=== PATIENT | male | born 1945 | race Caucasian/White ===

== ENCOUNTER 2022-06-11 09:10 | Outpatient (CLI) | payer MEDICARE, SELFPAY ==
[2022-06-11 19:38] LABS: Alanine Aminotransferase 31 U/L (6-50); Albumin Level 4.3 g/dL (3.5-5.1); Alkaline Phosphatase 66 U/L (38-126); Anion Gap 10 mmol/L (8-16); Aspartate Amino Transferase 34 U/L (17-59); Bilirubin,Total 0.5 mg/dL (0.2-1.3); Blood Urea Nitrogen 14 mg/dL (9-20); Calcium 9.8 mg/dL (8.4-10.2); Carbon Dioxide 26 mmol/L (22-30); Chloride 105 mmol/L (98-107); Cholesterol 134 mg/dL (0-200); Estimated Glomerular Filt Rate > 60; Glucose 98 mg/dL (65-110); HDL Direct 33 mg/dL; Potassium 4.1 mmol/L (3.4-5.0); Sodium 141 mmol/L (137-145); Triglycerides 159 mg/dL (<150)
[2022-06-11 19:41] LABS: Basophils Absolute Auto 0.1 K/mm3 (0.0-0.1); Basophils Percent Auto 0.6 % (0.2-1.2); Eosinophils Absolute Auto 0.2 K/mm3 (0-0.3); Eosinophils Percent Auto 2.5 % (0-4.4); Hematocrit 48.6 % (42.0-52.0); Hemoglobin 15.4 g/dL (14.0-18.0); Immature Granulocyte Absolute 0.02 K/mm3 (0.00-0.031); Immature Granulocyte Percent A 0.3 % (0-0.5); Lymphocytes Absolute Auto 1.88 K/mm3 (0.9-3.2); Lymphocytes Percent Auto 23.7 % (18.3-44.2); Mean Corpuscular HGB Conc 31.7 g/dl (32-36); Mean Corpuscular Hemoglobin 28.9 pg (26-34); Mean Corpuscular Volume 91.2 fl (80-100); Monocytes Absolute Auto 0.7 K/mm3 (0.1-0.6); Monocytes Percent Auto 9.1 % (2.6-8.5); Neutrophils Absolute Auto 5.1 K/mm3 (1.3-6.7); Neutrophils Percent Auto 63.8 % (45.5-73.1); Platelet Count Result 254 k/mm3 (150-375); Red Blood Count 5.33 M/mm3 (4.6-6.20); Red Cell Distribution Width 13.5 % (11.5-14.5); White Blood Count 7.9 K/mm3 (4.5-10.0)
[2022-06-11 19:48] LABS: LDL Cholesterol Direct 70 mg/dL
[2022-06-11 20:23] LABS: Hemoglobin A1C 6.3 % (<5.7)
[2022-06-11 20:27] LABS: Vitamin D 25 Hydroxy 62.3 ng/mL
[2022-06-11 20:40] LABS: Thyroid Stimulating Hormone Reflex 0.915 uIU/mL (0.465-4.68)
== END 2022-06-11 09:11 | disposition home or self-care (01) ==
LOC: ANHGOSHLAB 09:15
PROVIDERS: PCP Family Medicine; Visit Provider Nurse Practitioner
DX: I10 Essential (primary) hypertension (principal); R53.83 Other fatigue; E55.9 Vitamin D deficiency, unspecified; E78.5 Hyperlipidemia, unspecified; E11.9 Type 2 diabetes mellitus without complications
CPT/HCPCS: 36415; 80053; 80061; 82306; 83036; 84443; 85025

== ENCOUNTER 2022-12-18 08:43 | Outpatient (CLI) | payer MEDICARE, SELFPAY ==
[2022-12-18 10:09] LABS: Kit Draw Collected
== END 2022-12-18 08:44 | disposition home or self-care (01) ==
LOC: ANHGOSHLAB 08:45
PROVIDERS: PCP Family Medicine; Visit Provider Nurse Practitioner
DX: I10 Essential (primary) hypertension (principal); E11.9 Type 2 diabetes mellitus without complications; E78.5 Hyperlipidemia, unspecified; Z12.5 Encounter for screening for malignant neoplasm of prostate
CPT/HCPCS: 36415

== ENCOUNTER 2023-06-19 09:31 | Outpatient (CLI) | payer MEDICARE, SELFPAY ==
[2023-06-19 19:19] LABS: Alanine Aminotransferase 43 U/L (6-50); Albumin Level 4.5 g/dL (3.5-5.1); Alkaline Phosphatase 67 U/L (38-126); Anion Gap 9 mmol/L (8-16); Aspartate Amino Transferase 34 U/L (17-59); Bilirubin,Total 0.3 mg/dL (0.2-1.3); Blood Urea Nitrogen 16 mg/dL (9-20); Calcium 9.5 mg/dL (8.4-10.2); Carbon Dioxide 27 mmol/L (22-30); Chloride 106 mmol/L (98-107); Estimated Glomerular Filt Rate > 60; Glucose 83 mg/dL (65-110); Potassium 4.8 mmol/L (3.4-5.0); Sodium 142 mmol/L (137-145)
[2023-06-19 20:12] LABS: Hemoglobin A1C 6.2 % (<5.7)
== END 2023-06-19 09:32 | disposition home or self-care (01) ==
PROVIDERS: PCP Family Medicine; Visit Provider Family Medicine
DX: E11.9 Type 2 diabetes mellitus without complications (principal); E53.8 Deficiency of other specified B group vitamins; E78.49 Other hyperlipidemia; I10 Essential (primary) hypertension
CPT/HCPCS: 36415; 80053; 82607; 83036; 84443

== ENCOUNTER 2023-12-23 12:32 | Outpatient (CLI) | payer MEDICARE, SELFPAY ==
[2023-12-23 19:16] LABS: Alanine Aminotransferase 26 U/L (6-50); Albumin Level 4.3 g/dL (3.5-5.1); Alkaline Phosphatase 67 U/L (38-126); Anion Gap 8 mmol/L (8-16); Aspartate Amino Transferase 30 U/L (17-59); Bilirubin,Total 0.4 mg/dL (0.2-1.3); Blood Urea Nitrogen 22 mg/dL (9-20); Calcium 10.2 mg/dL (8.4-10.2); Carbon Dioxide 26 mmol/L (22-30); Chloride 110 mmol/L (98-107); Cholesterol 179 mg/dL (0-200); Estimated Glomerular Filt Rate > 60; Glucose 109 mg/dL (65-110); HDL Direct 32 mg/dL; Potassium 4.9 mmol/L (3.4-5.0); Sodium 144 mmol/L (137-145); Triglycerides 261 mg/dL (<150)
[2023-12-23 19:28] LABS: LDL Cholesterol Direct 113 mg/dL
[2023-12-23 19:35] LABS: Basophils Absolute Auto 0.1 K/mm3 (0.0-0.1); Basophils Percent Auto 1.1 % (0.2-1.2); Eosinophils Absolute Auto 0.6 K/mm3 (0-0.3); Eosinophils Percent Auto 6.1 % (0-4.4); Hematocrit 47.6 % (42.0-52.0); Hemoglobin 14.6 g/dL (14.0-18.0); Immature Granulocyte Absolute 0.02 K/mm3 (0.00-0.031); Immature Granulocyte Percent A 0.2 % (0-0.5); Lymphocytes Absolute Auto 2.61 K/mm3 (0.9-3.2); Lymphocytes Percent Auto 27.5 % (18.3-44.2); Mean Corpuscular HGB Conc 30.7 g/dl (32-36); Mean Corpuscular Hemoglobin 28.5 pg (26-34); Mean Platelet Volume 10.6 fl (7.4-10.4); Monocytes Absolute Auto 0.8 K/mm3 (0.1-0.6); Monocytes Percent Auto 8.3 % (2.6-8.5); Neutrophils Absolute Auto 5.4 K/mm3 (1.3-6.7); Neutrophils Percent Auto 56.8 % (45.5-73.1); Platelet Count Result 289 k/mm3 (150-375); Red Blood Count 5.12 M/mm3 (4.6-6.20); Red Cell Distribution Width 13.2 % (11.5-14.5); White Blood Count 9.5 K/mm3 (4.5-10.0)
[2023-12-23 19:40] LABS: Vitamin D 25 Hydroxy 72.1 ng/mL
[2023-12-23 19:54] LABS: Thyroid Stimulating Hormone Reflex 0.845 uIU/mL (0.465-4.68)
[2023-12-23 20:36] LABS: Creatinine Urine 140.3 mg/dL
[2023-12-23 20:45] LABS: MALB Creatinine Ratio 20.6 mg/g (0-30); Microalbumin Urine Random 28.9 mg/L (0-16.7)
[2023-12-23 21:27] LABS: Hemoglobin A1C 6.3 % (<5.7)
== END 2023-12-23 12:33 | disposition home or self-care (01) ==
LOC: ANHGOSHLAB 12:33
PROVIDERS: PCP Family Medicine; Visit Provider Family Medicine
DX: E53.8 Deficiency of other specified B group vitamins (principal); E11.9 Type 2 diabetes mellitus without complications; E78.5 Hyperlipidemia, unspecified; I10 Essential (primary) hypertension; E55.9 Vitamin D deficiency, unspecified; Z12.5 Encounter for screening for malignant neoplasm of prostate; H40.9 Unspecified glaucoma; Z00.00 Encounter for general adult medical examination without abnormal findings
CPT/HCPCS: 36415; 80053; 80061; 82043; 82306; 82607; 83036; 84153; 84443; 85025; G0103

== ENCOUNTER 2024-06-29 12:28 | Outpatient (CLI) | payer MEDICARE, SELFPAY ==
[2024-06-29 16:24] LABS: Alanine Aminotransferase 31 U/L (6-50); Albumin Level 4.4 g/dL (3.5-5.1); Alkaline Phosphatase 78 U/L (38-126); Anion Gap 9 mmol/L (4-12); Aspartate Amino Transferase 57 U/L (17-59); Bilirubin,Total 0.5 mg/dL (0.2-1.3); Blood Urea Nitrogen 15 mg/dL (9-20); Calcium 9.7 mg/dL (8.4-10.2); Carbon Dioxide 28 mmol/L (22-30); Chloride 103 mmol/L (98-107); Cholesterol 177 mg/dL (0-200); Estimated Glomerular Filt Rate > 60; Glucose 114 mg/dL (65-110); HDL Direct 40 mg/dL; Potassium 4.5 mmol/L (3.4-5.0); Sodium 140 mmol/L (137-145); Triglycerides 142 mg/dL (<150)
[2024-06-29 16:36] LABS: LDL Cholesterol Direct 100 mg/dL
[2024-06-29 16:56] LABS: Hemoglobin A1C 6.4 % (<5.7)
[2024-06-29 17:31] LABS: Hepatitis C Virus Antibody Negative (Negative)
== END 2024-06-29 12:29 | disposition home or self-care (01) ==
LOC: ANHGOSHLAB 12:29
PROVIDERS: PCP Family Medicine; Visit Provider Family Medicine
DX: E78.5 Hyperlipidemia, unspecified (principal); E11.9 Type 2 diabetes mellitus without complications; I10 Essential (primary) hypertension; Z11.59 Encounter for screening for other viral diseases
CPT/HCPCS: 36415; 80053; 80061; 83036; 86803

== ENCOUNTER 2024-12-07 18:10 | Emergency (ER) | payer MEDICARE, SELFPAY ==
[2024-12-07 18:24] VITALS: BP 191/75; PULSE 102; RESP 16; TEMP 38.8; O2SAT 96
--- OUTSIDE RECORDS SUMMARY | 2024-12-07 18:51 | XMS_ITS | Referral Summary ---
Author Organization [facility] [place] [address] Address [address] [place] [address] Care Team Providers Care Coil Connector Repairer Name Role Phone Iftikhar Barry MD Primary Care Provider Allergies Active Allergy Reactions Criticality Noted Date Comments Codeine Stomach upset Low 08/10/2022 Penicillins Rash Medium 08/10/2022 Medications metFORMIN (GLUCOPHAGE) 500 mg tablet Take 1 tablet (500 mg total) by mouth 2 (two) times a day [address] (PROTONIX) 40 mg EC tablet Take 1 tablet (40 mg total) by mouth 2 (two) times a day 2 Active glipiZIDE (GLUCOTROL) 5 mg tablet Take 1 tablet (5 mg total) by mouth daily 2 Active hydrOXYzine (ATARAX) 25 mg tablet 2 Active OneTouch Ultra Test strip USE 1 STRIP TO CHECK BLOOD SUGAR TWICE DAILY 2 Active dorzolamide-nik oloL (COSOPT) 22.3-6.8 mg/mL ophthalmic solution INSTILL 1 DROP INTO BOTH EYES THREE TIMES DAILY 2 Active latanoprost (XALATAN) 0.005 % ophthalmic solution 1 drop nightly Activ e ibuprofen (ADVIL,MOTRIN) 200 mg tab/cap Take by mouth every 6 (six) hours as needed for pain Active amLODIPine (NORVASC) 10 mg tablet Take 1 tablet (10 mg total) by mouth daily 90 tablet 3 2 Active fosinopriL (MONOPRIL) 40 mg tablet Take 1 tablet (40 mg total) by mouth daily 90 tablet 3 2 Active brimonidine (ALPHAGAN) 0.2 % ophthalmic solution INSTILL 1 DROP INTO THE RIGHT EYE TWICE DAILY 3 Active Rhopressa 0.02 % drops Administer 0.05 mL (1 drop total) into affected eye(s) 2 (two) times a day 3 Active atorvastatin (LIPITOR) 40 mg tablet Take 1 tablet (40 mg total) by mouth nightly at bedtime 4 Active Active Problems Problem Noted Date Diagnosed Date Hyperlipidemia 04/03/2024 Primary hypertension 08/10/2022 Obesity (BMI 35.0-39.9 without comorbidity) 07/22 Diabetes mellitus type II, non insulin dependent ([facility]) 08/10/2022 Social History Tobacco Use Types Packs/Day Years Used Date Smoking Tobacco: Former Cigarettes Smokeless Tobacco: Never Tobacco Cessation:Counseling Given: Not Answered Personal Safety Answer Date Recorded Getting School Help Needed Not on file 10/04 Sex and Gender Information Value Date Recorded Sex Assigned at Not on file 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 Gender Identity Not on file Sexual Orientation Not on file Last Filed Vital Signs Vital Sign Reading Time Taken Comments Blood Pressure 160/64 04/03/2024 9:04 AM CDT Pulse 71 04/03/2024 9:04 AM CDT Temperature - - Respiratory Rate - - Oxygen Saturation 96% 04/03/2024 9:04 AM CDT Inhaled Oxygen Concentration - - Weight 101.2 kg (223 lb 3.2 oz) 04/03/2024 9:04 AM CDT Height 167.6 cm (5' 6 ) 04/03/2024 9:04 AM CDT Body Mass Index 36.03 04/03/2024 9:04 AM CDT Plan of Treatment Not on file Procedures Procedure Name Priority Date/Time Associated Diagnosis Comments POCT LIPID PANEL Routine 08/10/2022 9:14 AM CDT Lipid screening from Last 3 Months or Most Recently Relevant to Health Maintenance Results * POCT lipid panel (08/10/2022 9:14 AM CDT) Cholesterol, POC 136 mg/dL HDL, POC 33 mg/dL Triglycerides, POC 167 mg/dL LDL Cholesterol POC 69 mg/dL Chol/HDL Ratio, POC 4.1 Non-HDL Cholesterol, POC 103 mg/dL Cholesterol Total, POC 136 mg/dL Capillary blood 08/10/2022 9 :14 AM CDT [facility] Edwar Mckenzie MD POINT OF CARE TEST CAITLIN HANDY Final Result from Last 3 Months or Most Recently Relevant to Health Maintenance Insurance [facility] Address: [address] [address] [place] [address] [facility] MEDICARE [facility] Address: [address] [place] [address] [facility] MEDICARE Care Teams Coil Connector Repairer Relationship Specialty Start Date End Date Iftikhar Barry MD PCP - General Family Practice 07/27/22
--- OUTSIDE RECORDS SUMMARY | 2024-12-07 18:51 | XMS_ITS | Clinical Summary ---
Author Organization [facility] [employer] Address [address] [place] [address] Care Team Providers Care Retail Asset Protection Specialist Name Role Phone Santiago Restrepo MD Primary Care Provider [phone] Source Comments [facility] [employer],[facility] Affiliates and Associated Physician Practices is amultiple site organization consisting of ambulatory clinics and hospital sitesin [place], [place], [place] and [place]. This disclosure is being madepursuant to the Care Everywhere program and may not contain all information available regarding this patient. Last updated 18.[facility] [employer] Allergies Active Allergy Reactions Criticality Noted Date Comments Codeine Nausea and/or Vomiting Low 08/10/2022 Penicillins Rash Medium 08/10/2022 Medications * Be aware that medications may not be up to date on this document. Alwaysverify current medications with the patient. Medication Sig Dispensed Refills Start Date End Date Status dorzolamide-timolol (Cosopt) 2-0.5 % ophthalmic solution INSTILL 1 DROP IN BOTH EYES THREE TIMES DAILY 10/03/2023 Active fosinopril (Monopril) 40 MG tablet Take 1 (one) tablet by mouth once daily 08/31/2022 Active glipiZIDE (Glucotrol) 5 MG tablet Take 1 (one) tablet by mouth once daily 09/13/2023 Active hydrOXYzine HCl (Atarax) 25 MG tablet Take 1 (one) tablet by mouth 2 times daily 10/14/2023 Active ibuprofen (Motrin) 200 MG tablet Take by mouth every 6 hours as needed Active latanoprost (Xalatan) 0.005 % ophthalmic solution INSTILL 1 DROP IN BOTH EYES AT BEDTIME DIRECTED 10/28/2023 Active lovastatin (Mevacor) 40 MG tablet Take 1 (one) tablet by mouth 2 times daily 08/14/2023 Active metFORMIN (Glucophage) 500 MG tablet Take 1 (one) tablet by mouth 2 times daily 08/14/2023 Active Rhopressa 0.02 % ophthalmic solution Instill 1 (one) drop into both eyes 2 times daily 11/05/2023 Active pantoprazole EC (Protonix) 40 MG tablet Take 1 (one) tablet by mouth 2 times daily 08/14/2023 Active amLODIPine (Norvasc) 10 MG tablet Take 1 (one) tablet by mouth once daily 09/13/2023 Active Active Problems Problem Noted Date Diagnosed Date Depression 11/13/2023 Diabetes mellitus type II, non insulin dependent 08/10/2022 11/15/2023 Obesity (BMI 35.0-39.9 without comorbidity) 07/2211/15/2023 Primary hypertension 08/10/2022 11/15/2023 Social History Tobacco Use Types Packs/Day Years Used Date Smoking Tobacco: Never Assessed Tobacco Cessation:Counseling Given: Not Answered Sex and Gender Information Value Date Recorded Sex Assigned at Not on file Gender Identity Not on file Sexual Orientation Not on file Plan of Treatment Health Maintenance Due Date Last Done Comments HEPATITIS C SCREENING 01/26/1963 DIABETES-SERUM CREATININE 01/31/1964 DTAP/TDAP/TD VACCINES (1 - Tdap) 1965 PNEUMOCOCCAL VACCINE 50+ (1 of 2 - PCV) 1965 ZOSTER VACCINE (1 of 2) 01/31/1996 Respiratory Syncytial Virus (RSV) Vaccine Pt: or over 60 yrs (1 - 1-dose 75+ series) 2021 DIABETES-FOOT EXAM WITH MONOFILAMENT 11/15/2023 DIABETES-HGB A1C 11/15/2023 COVID-19 VACCINE (1 - 2023-2 5 season) 2024 INFLUENZA VACCINE (#1) 2024 DEPRESSION SCREENING 10/21/2024 DIABETES - URINE PROTEIN SCREENING 10/21/2024 MEDICARE AWV CALENDAR YEAR 2024 DIABETES RETINOPATHY SCREENING 11/13/2025 11/13/2023 HEPATITIS B VACCINE Aged Out No longe r eligible based on patient's age to complete this topic HIB VACCINE Aged Out No longer eligi ble based on patient's age to complete this topic HPV VACCINE Aged Out No longer eligi ble based on patient's age to complete this topic MENINGOCOCCAL (Group B) VACCINE Aged Out No longer eligible based on patient's age to complete this topic MENINGOCOCCAL VACCINE Aged Out No christin attila eligible based on patient's age to complete this topic Care Teams Retail Asset Protection Specialist Relationship Specialty Start Date End Date Santiago Restrepo MD [address] [place] [address] PCP - General 06/24/19
--- OUTSIDE RECORDS SUMMARY | 2024-12-07 18:51 | XMS_ITS | Patient Health Summary ---
Author Organization [facility] Address [address] [place] [address] Care Team Providers Care Junior Systems Analyst Name Role Phone Santiago Restrepo MD Primary Care Provider [phone] Note from [facility],non-owned Affiliates and Associated Physician Practices is amultiple site organization consisting of ambulatory clinics and hospital sitesin [place], [place], [place] and [place]. This disclosure is being madepursuant to the Care Everywhere program and may not contain all information available regarding this patient. Last updated 18.[facility] Allergies * Codeine(Nausea and/or Vomiting) -Low Criticality * Penicillins(Rash) -Medium Criticality Medications * Be aware that medications may not be up to date on this document. Alwaysverify current medications with the patient. * dorzolamide-timolol (Cosopt) 2-0.5 % ophthalmic solution(Started 10/03/2023) INSTILL 1 DROP IN BOTH EYES THREE TIMES DAILY * fosinopril (Monopril) 40 MG tablet(Started 08/31/2022) Take 1 (one) tablet by mouth once daily * glipiZIDE (Glucotrol) 5 MG tablet(Started 09/13/2023) Take 1 (one) tablet by mouth once daily * hydrOXYzine HCl (Atarax) 25 MG tablet(Started 10/14/2023) Take 1 (one) tablet by mouth 2 times daily * ibuprofen (Motrin) 200 MG tablet Take by mouth every 6 hours as needed * latanoprost (Xalatan) 0.005 % ophthalmic solution(Started 10/28/2023) INSTILL 1 DROP IN BOTH EYES AT BEDTIME DIRECTED * lovastatin (Mevacor) 40 MG tablet(Started 08/14/2023) Take 1 (one) tablet by mouth 2 times daily * metFORMIN (Glucophage) 500 MG tablet(Started 08/14/2023) Take 1 (one) tablet by mouth 2 times daily * Rhopressa 0.02 % ophthalmic solution(Started 11/05/2023) Instill 1 (one) drop into both eyes 2 times daily * pantoprazole EC (Protonix) 40 MG tablet(Started 08/14/2023) Take 1 (one) tablet by mouth 2 times daily * amLODIPine (Norvasc) 10 MG tablet(Started 09/13/2023) Take 1 (one) tablet by mouth once daily Active Problems Problem Noted Date Diagnosed Date [...] on file Sexual Orientation Not on file Care Teams Junior Systems Analyst Relationship Specialty Start Date End Date Santiago Restrepo MD [address] [place] [address] PCP - General 06/24/19
--- OUTSIDE RECORDS SUMMARY | 2024-12-07 18:51 | XMS_ITS | Referral Summary ---
Author Organization [facility] Address [address] [place] [address] Care Team Providers Care Aircraft Maintenance Director Name Role Phone Santiago Restrepo MD Primary Care Provider [phone] Source Comments [facility],non-[facility] Affiliates and Associated Physician Practices is amultiple site organization consisting of ambulatory clinics and hospital sitesin [place], [place], [place] and [place]. This disclosure is being madepursuant to the Care Everywhere program and may not contain all information available regarding this patient. Last updated 18.[facility] Allergies Active Allergy Reactions Criticality Noted Date [...] Orientation Not on file Plan of Treatment Not on file Care Teams Aircraft Maintenance Director Relationship Specialty Start Date End Date Santigao Restrepo MD [address] [place] [address] PCP - General 06/24/19
--- OUTSIDE RECORDS SUMMARY | 2024-12-07 18:51 | XMS_ITS | Clinical Summary ---
Author Organization [facility] [address] [facility] [address] [facility] [address] [place] [address] Care Team Providers Care Microwave Radio Technician Name Role Phone Iftikhar Barry MD Primary [...] Diabetes mellitus type II, non insulin dependent (CMS/HCC) 08/10/2022 Social History Tobacco Use Types Packs/Day Years Used Date Smoking Tobacco: Former Cigarettes Smokeless Tobacco: Never Tobacco Cessation:Counseling Given: Not Answered Personal Safety Answer Date Recorded Getting School Help Needed Not on file 10/04 Sex and Gender Information Value Date Recorded Sex Assigned at Not on file 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 Gender Identity Not on file Sexual Orientation Not on file Obstetrics History Last Filed Vital Signs Vital Sign Reading [...] 04/03/2024 9:04 AM CDT Plan of Treatment Health Maintenance Due Date Last Done Comments Albumin Creatinine Ratio, Urine 1946 Depression Screening 1946 Fall Risk Assessment 1946 Hemoglobin A1C 1946 Hepatitis C Screening 1945 eGFR 1946 Dilated Eye Exam 1946 Foot Exam 1946 DTaP/Tdap/Td Vaccine (1 - Tdap) 1957 Hepatitis B Screening 01/31/1964 Well Visit 65+ 2011 Pneumococcal vaccine 65+ (2 of 2 - PCV) 07/30/2019 07/30/2018 Zoster Vaccine (2 of 3) 10/13/2019 08/18/2019 Lipid Panel 08/10/2023 08/10/2022 Covid-19 Vaccine (5 - 2023-2 5 season) 2024 02/28/2022, 09/01/2021, 01/25/2021, Additional history exists Influenza Vaccine (#1) 2024 , 07/07/2020, 07/17/2019, Additional history exists Procedures Procedure Name Priority Date/Time Associated Diagnosis [...] Capillary blood 08/10/2022 9 :14 AM CDT [facility] Edwar Mckenzie MD POINT OF CARE TEST ORDAlfreda HANDY Final Result from Last 3 Months or Most Recently Relevant to Health Maintenance Insurance MEDICARE [facility] MEDICARE [facility] MEDIC[facility] Care Teams Microwave Radio Technician Relationship Specialty Start Date End Date Iftikhar Barry MD PCP - General Family Practice 07/27/22
--- NOTE | 2024-12-07 19:03 | ED_ITS ---
HPI - URI/Sore Throat General Chief Complaint: Upper Respiratory Infection Stated Complaint: Cough/Fever Time Seen by Provider: 12/07/24 18:40 Source: patient, RN notes reviewed and old records reviewed Mode of arrival: ambulatory Limitations: no limitations History of Present Illness HPI Narrative: 79 year old male presents to [facility] care today accompanied by friend with complaints of being ill for about 3 weeks with cough and congestion and today started running a fever. Patient reports that he has taken Robitussin and Zicam for his symptoms. Patient reports that he took Ibuprofen this morning which he d oes daily for his arthritis but has not taken any additional doses. MD elicited complaint: fever, cough and other (congestion) Onset (ago): week(s) (cough and congestion for 2-3 weeks today started with fever) Severity: moderate Able to tolerate fluids by mouth: Yes Treatments prior to arrival: ibuprofen and other (Robitussin and Zicam) Related Data Home Medications ?Medication ?Instructions ?Recorded ?Confirmed ?Last Taken ?Type ibuprofen 200 mg tablet 400 mg PO DAILY 11/25/19 06/29/24 Unknown History latanoprost 0.005 % eye drops 1 drop ophthalmic (eye) QPM 11/25/19 06/29/24 Unk nown History timolol maleate 0.5 % eye drops 1 drop ophthalmic (eye) Q12H 11/25/19 06/29/24 Unknown History vitamin B complex (B 1 tablet PO DAILY 11/25/20 06/29/24 Unknown History Complex-Vitamin B12 tablet) dorzolamide 22.3 mg-timolol 6.8 1 drp EACH EYE BID 06/05/21 06/29/24 Unknown History mg/mL eye drops brimonidine 0.2 % eye drops 1 drp EACH EYE Q8H 12/23/23 06/29/24 Unknown History netarsudil 0.02 % eye drops 1 drp EACH EYE BID 12/23/23 06/29/24 Unknown History (Rhopressa) sodium chloride 5 % eye drops 1 drp EACH EYE QID PRN 12/23/23 06/29/24 Unknown History (Salome 128) Allergies Allergy/AdvReac Type Severity Reaction Status Date / Time Horse/Equine Containing Allergy Severe SWELLING Verified 06/29/24 11:05 Products codeine Allergy Unknown Unknown Verified 06/29/24 11:05 Penicillins Allergy Unknown Unknown Verified 06/29/24 11:05 warfarin Allergy Unknown Unknown Verified 06/29/24 11:05 Tetanus Vaccines and Toxoid AdvReac Mild Rash Verified 06/29/24 11:05 Review of Systems Review of Systems: CONSTITUTIONAL: Reports malaise, chills, sweats, or fever. EYES: Denies visual changes, redness, or discharge. ENT: Reports rhinorrhea, congestion,no sinus pain, no otalgia and no sore throat. CARDIOVASCULAR: Denies chest pain, palpitations, or edema. RESPIRATORY: Reports cough.? Denies dyspnea. GASTROINTESTINAL: Denies abdominal pain, nausea, vomiting, diarrhea SKIN: Denies rash or itching. MUSCULOSKELETAL: Denies myalgia. NEUROLOGIC: Denies headache. All systems reviewed & are unremarkable except as noted in HPI and below PMFSH Past Medical History Medical History Numbness and tingling in both hands Osteoarthritis Type 2 diabetes mellitus without complications Environmental allergies Colon cancer screening declined Blindness of left eye Benign prostatic hyperplasia with nocturia Essential (primary) hypertension (~1989) Chronic GERD (~2018) Other hyperlipidemia (~2009) Unspecified glaucoma Surgical History Surgical History History of tonsillectomy and adenoidectomy History of cataract surgery (~1977) History of medial meniscus repair of left knee (~06/2018) Status post glaucoma surgery (~04/2023) Family History Family History Mother Hypertension Sibling Hypertension Stomach cancer brother passed 1m 2wks ago. Social History Social History Social History: caffeine-diet soda Smoking status: Former smoker Second hand tobacco smoke exposure: No Smoking end date: 10/21/89 Alcohol intake: former Substance use: never Substance use type: does not use Lack of Transportation: No Lack of Food: Never True Current Housing: I Have Housing Concerned About Future Housing: No Difficulty Paying Gas/Electric Bills: No Difficulty Paying for Meds: No Currently Unemployed: No Education: High School Diploma/GED Difficulty w/ Childcare or Family Care: No Living arrangements: alone Occupation/Education: retired Gender identity (if verbalized by the patient): Male Agree to blood products: Yes Comments At time of signature, agree with nursing past medical, surgical, social and family history. There is no relevant family history pertinent to the presenting complaint Exam Narrative: GENERAL: well appearing, well-nourished, and in no acute distress. HEAD: Normocephalic EYES: PERRLA, conjunctivae clear ENT: Nares clear, turbinates edematous and erythematous, clear discharge. Mucous membranes moist. TM pearly frey with dull light reflex bilaterally; no tragal tenderness. Oropharynx erythematous without lesions. Tonsils not enlarged and without exudate, no drooling, no hoarseness, no trismus, uvula midline. NECK: Supple. No lymphadenopathy CHEST: Clear to auscultation, breath sounds equal. No wheezing, rhonchi, rales, or stridor. No respiratory distress, speaks in full sentences.cough noted, SAO2 96% on room air HEART: Regular rate and rhythm. No murmur heard. SKIN: Warm, dry, no rash. NEURO: Alert and oriented x3. PSYCH: Normal mood and affect Course Course Emergency Course: Patient is aware of diagnosis, understands and agrees to treatment plan.? Anticipatory guidance given.? Patient agrees to follow-up as directed and is aware of reasons to seek care at the emergency department. Portions of this record may have been created with voice recognition software Level of Care: Express Care Visit Vital Signs Vital signs: Vital Signs Temperature 38.8 C H 12/07/24 18:24 Pulse Rate 102 H 12/07/24 18:24 Respiratory Rate 16 12/07/24 18:24 Blood Pressure 191/75 H 12/07/24 18:24 Pulse Oximetry 96 12/07/24 18:24 Oxygen Delivery Room Air 12/07/24 18:24 Temperature 38.8 C H 12/07/24 18:24 Pulse Rate 102 H 12/07/24 18:24 Respiratory Rate 16 12/07/24 18:24 Blood Pressure 191/75 H 12/07/24 18:24 Pulse Oximetry 96 12/07/24 18:24 Oxygen Delivery Room Air 12/07/24 18:24 Reviewed MDM - URI/Sore Throat MDM Narrative Medical decision making narrative: Differential diagnosis considered: Resendez virus, strep pharyngitis, allergic rhinitis, upper respiratory tract infection, sinusitis, rhinosinusitis, nasopharyngitis. viral pharyngitis, otitis media, otitis externa, pneumonia, bronchitis, viral cough syndrome, viral syndrome, and influenza.? Exam findings show no acute concerns or changes; patient is non-toxic appearing and is in no distress.? Patient is appropriate for outpatient treatment and follow-up. Differential Diagnosis Differential diagnosis: Likely upper respiratory infection, sinusitis, viral infection and other (cough and congestion) Medical Records Attestation: I reviewed the patient's medical records. Lab Data Attestation: I reviewed the patient's lab results. Critical Care Time Critical Care Time Critical Care Time: No Discharge Plan Discharge Clinical Impression: Upper respiratory infection with cough and congestion Patient Disposition: Home, Self-Care Condition: Stable Instructions: Antibiotic Form, Upper Respiratory Infection (ED), Acute Cough (ED) Additional Instructions: Increase fluids especially juices and water Sgzo-[id number]-[id number] cough and cold medicine of your choice for your symptoms Zyrtec Claritin or Kelly daily include Coricidin brand decongestant Tylenol or ibuprofen for any fever pain Steroids as directed--take with food heat to the face 20-30 minutes 4-6 times a day for pain Salt water gargles, throat lozenges or throat sprays as desired Antibiotic as directed--finished the medication If your symptoms persist, change or worsen significantly before you can contact your personal physician then please, without delay, go to the emergency department for further evaluation. Follow-up with PCP in 7-10 days or sooner if needed Follow up with PCP soon in regards to your blood pressure which is elevated above threshold for referral. Blood pressure above 120/80 may indicate pre- hypertension. 191/75 Check temperature every 4 hours Patient Language: Greenlandic Prescriptions: New prednisone 20 mg tablet 40 mg PO DAILY Qty: 10 0RF Rx Instructions: Start in a.m. azithromycin 250 mg tablet See Rx Instructions .ROUTE .COMPLEX Qty: 6 0RF Rx Instructions: For 250 mg dose pack: take 500 mg today (day 1), then 250 mg for 4 days (days 2-5) No Action vitamin B complex [B Complex-Vitamin B12] Tablet 1 tablet PO DAILY dorzolamide-timolol 22.3-6.8 mg/mL drops 1 drp EACH EYE BID Rhopressa 0.02 % drops 1 drp EACH EYE BID sodium chloride [Salome 128] 5 % drops 1 drp EACH EYE QID PRN brimonidine 0.2 % drops 1 drp EACH EYE Q8H ibuprofen 200 mg tablet 400 mg PO DAILY timolol maleate 0.5 % drops 1 drop EACH EYE Q12H latanoprost 0.005 % drops 1 drop EACH EYE QPM (DME) Blood Glucose Test Strip See Rx Instructions .ROUTE .MEDSUPPLY Qty: 100 5RF Rx Instructions: check blood sugars t.i.d. a.c. As directed (DME) lancets 30 gauge misc See Rx Instructions .Route Qty: 100 1RF Rx Instructions: check blood sugars qdaily As directed (DME) lancets 30 gauge misc See Rx Instructions .Route Qty: 100 3RF Rx Instructions: Use BID atorvastatin [Lipitor] 40 mg tablet 40 mg PO QHS Qty: 90 1RF glipizide 5 mg tablet 5 mg PO DAILY Qty: 90 1RF fosinopril 40 mg tablet 40 mg PO DAILY Qty: 90 1RF pantoprazole 40 mg tablet,delayed release (DR/EC) 40 mg PO BID Qty: 180 1RF amlodipine 10 mg tablet 10 mg PO DAILY Qty: 90 1RF metformin 500 mg tablet 500 mg PO BID Qty: 180 1RF hydroxyzine HCl 25 mg tablet 25 mg PO BID Qty: 60 5RF Follow-up/Referrals: Therese Barry MD [Primary Care Provider] - Time of Disposition: 19:18 Quality [place] Coma Scale Eyes: Open Verbal: Oriented and Alert Motor: Follows Commands [place] Coma Total Score: 15
== END 2024-12-07 19:26 | disposition home or self-care (01) ==
PROVIDERS: Emergency Provider Registered Nurse; PCP Family Medicine
DX: J06.9 Acute upper respiratory infection, unspecified (principal); R05.9 Cough, unspecified; Z87.891 Personal history of nicotine dependence; I10 Essential (primary) hypertension; E78.49 Other hyperlipidemia; M19.90 Unspecified osteoarthritis, unspecified site; E11.39 Type 2 diabetes mellitus with other diabetic ophthalmic complication; H40.89 Other specified glaucoma; H42 Glaucoma in diseases classified elsewhere; Z79.84 Long term (current) use of oral hypoglycemic drugs; H54.62 Unqualified visual loss, left eye, normal vision right eye
CPT/HCPCS: 99213; G0463

== ENCOUNTER 2024-12-22 11:53 | Outpatient (CLI) | payer MEDICARE, SELFPAY ==
[2024-12-22 13:25] LABS: Basophils Absolute Auto 0.1 K/mm3 (0.0-0.1); Basophils Percent Auto 0.6 % (0.2-1.2); Eosinophils Absolute Auto 0.2 K/mm3 (0-0.3); Eosinophils Percent Auto 2.6 % (0-4.4); Hematocrit 46.9 % (42.0-52.0); Hemoglobin 14.7 g/dL (14.0-18.0); Immature Granulocyte Absolute 0.03 K/mm3 (0.00-0.031); Immature Granulocyte Percent A 0.3 % (0-0.5); Lymphocytes Percent Auto 31.7 % (18.3-44.2); Mean Corpuscular HGB Conc 31.3 g/dl (32-36); Mean Corpuscular Hemoglobin 28.3 pg (26-34); Mean Corpuscular Volume 90.4 fl (80-100); Mean Platelet Volume 10.2 fl (7.4-10.4); Monocytes Absolute Auto 0.7 K/mm3 (0.1-0.6); Monocytes Percent Auto 7.5 % (2.6-8.5); Neutrophils Absolute Auto 5.1 K/mm3 (1.3-6.7); Neutrophils Percent Auto 57.3 % (45.5-73.1); Platelet Count Result 244 k/mm3 (150-375); Red Blood Count 5.19 M/mm3 (4.6-6.20); Red Cell Distribution Width 12.9 % (11.5-14.5); White Blood Count 8.8 K/mm3 (4.5-10.0)
[2024-12-22 14:11] LABS: Vitamin D 25 Hydroxy 85.9 ng/mL
[2024-12-22 14:25] LABS: Thyroid Stimulating Hormone Reflex 0.746 uIU/mL (0.465-4.68)
[2024-12-22 14:49] LABS: Creatinine Urine 45.6 mg/dL
[2024-12-22 14:56] LABS: MALB Creatinine Ratio 27.4 mg/g (0-30); Microalbumin Urine Random 12.5 mg/L (0-16.7)
[2024-12-22 15:00] LABS: Alanine Aminotransferase 38 U/L (6-50); Albumin Level 4.3 g/dL (3.5-5.1); Alkaline Phosphatase 73 U/L (38-126); Anion Gap 10 mmol/L (4-12); Aspartate Amino Transferase 35 U/L (17-59); Bilirubin,Total 0.6 mg/dL (0.2-1.3); Blood Urea Nitrogen 14 mg/dL (9-20); Carbon Dioxide 27 mmol/L (22-30); Chloride 105 mmol/L (98-107); Cholesterol 176 mg/dL (0-200); Estimated Glomerular Filt Rate > 60; Glucose 113 mg/dL (65-110); HDL Direct 39 mg/dL; Potassium 4.4 mmol/L (3.4-5.0); Sodium 142 mmol/L (137-145); Triglycerides 188 mg/dL (<150)
[2024-12-22 15:19] LABS: LDL Cholesterol Direct 93 mg/dL
[2024-12-22 15:34] LABS: Prostate Specific Antigen 3.9 ng/mL (< OR = 4.0)
[2024-12-22 15:41] LABS: Hemoglobin A1C 6.6 % (<5.7)
[2024-12-22 16:07] LABS: Vitamin B12 > 1000.0 pg/mL (239-931)
== END 2024-12-22 11:54 | disposition home or self-care (01) ==
LOC: ANHGOSHLAB 11:53
PROVIDERS: PCP Family Medicine; Visit Provider Family Medicine
DX: E53.8 Deficiency of other specified B group vitamins (principal); I10 Essential (primary) hypertension; E11.9 Type 2 diabetes mellitus without complications; E55.9 Vitamin D deficiency, unspecified; E78.5 Hyperlipidemia, unspecified; Z12.5 Encounter for screening for malignant neoplasm of prostate
CPT/HCPCS: 36415; 80053; 80061; 82043; 82306; 82607; 83036; 84153; 84443; 85025; G0103

== ENCOUNTER 2025-02-20 13:38 | Emergency (ER) | payer MEDICARE, SELFPAY ==
--- NOTE | 2025-02-20 13:45 | ECG_ITS ---
Test Date: 2025-02-20 13:51:32 Measurements Intervals [place] Rate: 90 P: 31 AL: 127 QRS: 12 QRSD: 103 T: 37 QT: 359 QTc: 440 Interpretive Statements SINUS RHYTHM INCOMPLETE RIGHT BUNDLE BRANCH BLOCK [90+ ms QRS DURATION, TERMINAL R IN V1/V2, 40+ ms S IN I/aVL/V4/V5/V6]ST-T WAVE CHANGES IN INF-LAT LEADS INTERPRETATION BASED ON A DEFAULT AGE OF 40 YEARS No previous ECG available for comparison Electronically Signed On 02-21-2025 15:59:44 CDT by Deondre Torres
[2025-02-20 13:46] VITALS: BP 202/75; PULSE 86; RESP 20; TEMP 36.9; O2SAT 100
--- NOTE | 2025-02-20 13:47 | ED.GENADULT ---
HPI - General Adult General Chief complaint: Chest Pain Stated complaint: high blood pressure Time Seen by Provider: 02/20/25 13:40 Source: patient, family and RN notes reviewed Mode of arrival: ambulatory Limitations: no limitations History of Present Illness HPI narrative: 80-year-old male presents Express Care complaining of high blood pressure. Patient states he does not normally check his blood pressure but decided to check it today because he was having bilateral arm pain. They checked his blood pressure at home it was in the 200s over 100s. Patient denies any headache, blurry vision, chest pain, shortness of breath, slurred speech, or focal weakness. Patient does have a history of hypertension is currently taking high antihypertensive medications. The patient took his medications prior to arrival. Patient said in his 30s he had a heart attack. Patient has a history of heart disease and diabetes. Related Data Home Medications ?Medication ?Instructions ?Recorded ?Confirmed ?Last Taken ?Type ibuprofen 200 mg tablet 400 mg PO DAILY 11/25/19 12/22/24 Unknown History latanoprost 0.005 % eye drops 1 drop ophthalmic (eye) QPM 11/25/19 12/22/24 Unknown History timolol maleate 0.5 % eye drops 1 drop ophthalmic (eye) Q12H 11/25/19 12/22/24 Unknown History vitamin B complex (B 1 tablet PO DAILY 11/25/20 12/22/24 Unknown History Complex-Vitamin B12 tablet) dorzolamide 22.3 mg-timolol 6.8 1 drp EACH EYE BID 06/05/21 12/22/24 Unknown History mg/mL eye drops brimonidine 0.2 % eye drops 1 drp EACH EYE Q8H 12/23/23 12/22/24 Unknown History netarsudil 0.02 % eye drops 1 drp EACH EYE BID 12/23/23 12/22/24 Unknown History (Rhopressa) sodium chloride 5 % eye drops 1 drp EACH EYE QID PRN 12/23/23 12/22/24 Unknown History (Salome 128) atorvastatin 40 mg tablet 40 mg PO QHS 12/22/24 12/22/24 Unknown History pantoprazole 40 mg tablet,delayed 40 mg PO QAM 12/22/24 12/22/24 Unknown History release Allergies Allergy/AdvReac Type Severity Reaction Status Date / Time Horse/Equine Containing Allergy Severe SWELLING Verified 12/22/24 10:54 Products codeine Allergy Unknown Unknown Verified 12/22/24 10:54 Penicillins Allergy Unknown Unknown Verified 12/22/24 10:54 warfarin Allergy Unknown Unknown Verified 12/22/24 10:54 Tetanus Vaccines and Toxoid AdvReac Mild Rash Verified 12/22/24 10:54 Review of Systems Review of Systems: CONSTITUTIONAL: Denies fever, body aches, chills, or sweats. EYES: Denies visual changes, blurry vision, redness, or discharge. ENT: Denies rhinorrhea, congestion, sore throat, or otalgia. CARDIOVASCULAR: Denies chest pain, palpitations, dizziness, lightheadedness, syncope, or edema. Positive for arm pain RESPIRATORY: Denies cough or dyspnea. GASTROINTESTINAL: Denies abdominal pain, nausea, vomiting, or diarrhea. GENITOURINARY: Denies dysuria or hematuria. SKIN: Denies rash or itching. MUSCULOSKELETAL: Denies back pain, joint pain, or myalgia. NEUROLOGIC: Denies headache, numbness, slurred speech, or weakness. PSYCHIATRIC: Denies anxiety or depression. All other systems reviewed are negative, except as documented in HPI. [facility] Past Medical History Medical History Numbness and tingling in both hands Osteoarthritis Type 2 diabetes mellitus without complications Environmental allergies Colon cancer screening declined Blindness of left eye Benign prostatic hyperplasia with nocturia Essential (primary) hypertension (~1989) Chronic GERD (~2018) Other hyperlipidemia (~2009) Unspecified glaucoma Surgical History Surgical History History of tonsillectomy and adenoidectomy History of cataract surgery (~1977) History of medial meniscus repair of left knee (~06/2018) Status post glaucoma surgery (~04/2023) Family History Family History Mother Hypertension Sibling Hypertension Stomach cancer brother passed 1m 2wks ago. Social History Social History Social History: caffeine-diet soda Smoking status: Former smoker Second hand tobacco smoke exposure: No Smoking end date: 10/21/89 Alcohol intake: former Substance use: never Substance use type: does not use Lack of Transportation: No Lack of Food: Never True Current Housing: I Have Housing Concerned About Future Housing: No Difficulty Paying Gas/Electric Bills: No Difficulty Paying for Meds: No Currently Unemployed: No Education: High School Diploma/GED Difficulty w/ Childcare or Family Care: No Living arrangements: alone Occupation/Education: retired Gender identity (if verbalized by the patient): Male Agree to blood products: Yes Comments At the time of my signature, I reviewed and agree with the nursing past medical, surgical, social, and family history. There is no relevant family history pertinent to the patient complaint. Exam Narrative: GENERAL: This is a well-nourished, well-developed adult, in no apparent distress. They are non ill-appearing, nontoxic appearing. He is wearing glasses. HEAD: normocephalic, atraumatic. EYES: Sclera clear/white. Conjunctiva normal. Vision is grossly intact. Extraocular movements intact. Pupils PERRLA. EARS: External ears normal Hearing grossly intact. NOSE: External nose normal THROAT: Mucous membranes moist NECK: Normal range of motion CARDIOVASCULAR: Regular rate and rhythm, S1-S2 present. Systolic ejection murmur present, no gallops, friction, or rubs. RESPIRATORY: Clear to auscultation. Breath sounds equal bilaterally. No wheezes, rales, or rhonchi. GASTROINTESTINAL: Abdomen soft, non-tender, nondistended. Bowel sounds are active. No hepato-splenomegaly, or palpable masses. No guarding. SKIN: warm, Dry, intact with no suspicious lesions or rash, good texture and turgor. NEURO: awake, alert, and oriented to person, place and time. There were no obvious focal neurologic abnormalities. Speech is clear. Facial droop. No pronator drift. 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 EXTREMITIES: No joint tenderness, effusion, or edema noted. BACK: Nontender without deformity. No CVA tenderness. Course Course Emergency Course: Portions of this record may have been created with voice recognition software Level of Care: Express Care Visit Vital Signs Vital signs: Vital Signs Temperature 98.5 F 02/20/25 13:46 Pulse Rate 86 02/20/25 13:46 Respiratory Rate 20 02/20/25 13:46 Blood Pressure 202/75 H 02/20/25 13:46 Pulse Oximetry 100 02/20/25 13:46 Oxygen Delivery Room Air 02/20/25 13:46 Temperature 98.5 F 02/20/25 13:46 Pulse Rate 86 02/20/25 13:46 Respiratory Rate 20 02/20/25 13:46 Blood Pressure 202/75 H 02/20/25 13:46 Pulse Oximetry 100 02/20/25 13:46 Oxygen Delivery Room Air 02/20/25 13:46 Reviewed Transfer Transfered to: [facility] Transportation: Other (Private vehicle, offered EMS, patient declined. Spouse to take patient over to [facility].) Transfer rationale: Hypertensive urgency, patient requires higher level care. Accepting physician: Dr. Murcia Medical Decision Making MDM Narrative Medical decision making narrative: Given patient's symptoms, history, and patient's elevated blood pressures recommended the patient seek a higher level care and emergency department. Patient is agreeable to go to [facility]. EKG obtained that showed a sinus rhythm with a right bundle branch block that appears chronic compared to old ECG. No ischemic findings, nonspecific ST changes. Patient is having no chest pain or shortness of breath. Call over to [facility] and spoke with Dr. Murcia who is aware of this patient has accepted the patient for transfer. Offered EMS to transfer patient over to [facility] in the declined. Patient is stable to go by private vehicle. Vital Signs Vital Signs: Vital Signs Temperature 98.5 F 02/20/25 13:46 Pulse Rate 86 02/20/25 13:46 Respiratory Rate 20 02/20/25 13:46 Blood Pressure 202/75 H 02/20/25 13:46 Pulse Oximetry 100 02/20/25 13:46 Oxygen Delivery Room Air 02/20/25 13:46 Temperature 98.5 F 02/20/25 13:46 Pulse Rate 86 02/20/25 13:46 Respiratory Rate 20 02/20/25 13:46 Blood Pressure 202/75 H 02/20/25 13:46 Pulse Oximetry 100 02/20/25 13:46 Oxygen Delivery Room Air 02/20/25 13:46 ECG Data EKG #1: ECG completion date: 02/20/25 ECG completion time: 13:51 Prior ECG tracings: available for review EKG Interpretation: normal rate, sinus rhythm, non-specific ST changes, normal QRS and RBBB Critical Care Time Critical Care Time Critical Care Time: No Discharge Plan Discharge Clinical Impression: Hypertensive urgency Patient Disposition: Acute Care Hospital Condition: Stable Patient Language: Persian Prescriptions: No Action vitamin B complex [B Complex-Vitamin B12] Tablet 1 tablet PO DAILY dorzolamide-timolol 22.3-6.8 mg/mL drops 1 drp EACH EYE BID Rhopressa 0.02 % drops 1 drp EACH EYE BID sodium chloride [Salome 128] 5 % drops 1 drp EACH EYE QID PRN brimonidine 0.2 % drops 1 drp EACH EYE Q8H ibuprofen 200 mg tablet 400 mg PO DAILY timolol maleate 0.5 % drops 1 drop EACH EYE Q12H latanoprost 0.005 % drops 1 drop EACH EYE QPM (DME) Blood Glucose Test Strip See Rx Instructions .ROUTE .MEDSUPPLY Qty: 100 5RF Rx Instructions: check blood sugars t.i.d. a.c. As directed (DME) lancets 30 gauge misc See Rx Instructions .Route Qty: 100 1RF Rx Instructions: check blood sugars qdaily As directed atorvastatin 40 mg tablet 40 mg PO QHS pantoprazole 40 mg tablet,delayed release (DR/EC) 40 mg PO QAM (DME) lancets 30 gauge misc See Rx Instructions .Route Qty: 100 3RF Rx Instructions: Use BID fosinopril 40 mg tablet 40 mg PO DAILY Qty: 90 1RF amlodipine 10 mg tablet 10 mg PO DAILY Qty: 90 1RF metformin 500 mg tablet 500 mg PO BID Qty: 180 1RF hydroxyzine HCl 25 mg tablet 25 mg PO BID Qty: 60 5RF glipizide 5 mg tablet 5 mg PO DAILY Qty: 90 1RF Follow-up/Referrals: Therese Barry MD [Primary Care Provider] - Time of Disposition: 13:46
[2025-02-20 13:53] VITALS: BP 190/73; PULSE 88; RESP 20; O2SAT 98
--- OUTSIDE RECORDS SUMMARY | 2025-02-20 16:36 | XMS_ITS | Referral Summary ---
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 Name Role Phone Iftikhar Barry MD Primary [...] mellitus type II, non insulin dependent 08/10/2022 Social History Tobacco Use Types Packs/Day Years Used Date Smoking Tobacco: Former Cigarettes Smokeless Tobacco: Never Tobacco Cessation:Counseling Given: Not Answered Personal Safety Answer Date Recorded Getting School Help Needed Not on file 10/04 Sex and Gender Information Value Date Recorded Sex Assigned at Not on file 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 Gender Identity Not on file Sexual Orientation [...] Capillary blood 08/10/2022 9 :14 AM CDT [facility] Edwar Mckenzie MD POINT OF CARE TEST CAITLIN HANDY Final Result from Last 3 Months or Most Recently Relevant to Health Maintenance Insurance [facility] MEDICARE ADVANTAGE [facility] MEDIC[facility] Address: [address] [address] [place] [address] [facility] MEDICARE [facility] MEDICARE Care Teams 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
--- OUTSIDE RECORDS SUMMARY | 2025-02-20 16:36 | XMS_ITS | Clinical Summary ---
Author Organization [facility] Address [address] [place] [address] Care Team Providers Care Branch General Manager Name Role Phone Santiago Restrepo MD Primary Care Provider [phone] Source Comments [facility],non-[facility] Affiliates and Associated Physician Practices is amultiple site organization consisting of ambulatory clinics and hospital sitesin [place], [place], [place] and [place]. This disclosure is being madepursuant to the Care Everywhere program and may not contain all information available regarding this patient. Last updated 18.[facility] Allergies Active Allergy Reactions Criticality Noted Date Comments Codeine Nausea and/or Vomiting Low 08/10/2022 Penicillins Rash Medium 08/10/2022 Medications * Be aware that medications may not be up to date on this document. Alwaysverify current medications with the patient. dorzolamide-nik olol (Cosopt) 2-0.5 % ophthalmic solution INSTILL 1 [...] at Not on file Legal Sex Male 3:26 PM CDT Gender Identity Not on file Sexual Orientation [...] MONOFILAMENT 11/15/2023 DIABETES-HGB A1C 11/15/2023 COVID-19 VACCINE ( - 2023-2 5 season) 2024 DEPRESSION SCREENING 10/21/2024 DIABETES - URINE PROTEIN SCREENING 10/21/2024 MEDICARE AWV CALENDAR YEAR 2024 INFLUENZA VACCINE (Season Ended) 2025 DIABETES RETINOPATHY SCREENING 11/13/2025 11/13/2023 HEPATITIS B VACCINE Aged Out No longe r eligible based on patient's age to complete this topic HIB VACCINE Aged Out No longer eligi ble based on patient's age to complete this topic HPV VACCINE Aged Out No longer eligi ble based on patient's age to complete this topic MENINGOCOCCAL (Group B) VACC INE SHARED DECISION-MAKING Aged Out No longer eligibl e based on patient's age to complete this topic MENINGOCOCCAL GROUPS A/C/Y/W VACCINE Aged Out No longer eligible b ased on patient's age to complete this topic Insurance [employer] MEDICARE ADV Care Teams Branch General Manager Relationship Specialty Start Date End Date Santiago Restrepo MD [address] [place] [address] PCP - General 06/24/19
--- OUTSIDE RECORDS SUMMARY | 2025-02-20 16:36 | XMS_ITS | Clinical Summary ---
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 Edwar Mckenzie MD POINT OF CARE TEST CAITLIN HANDY Final Result from Last 3 Months or Most Recently Relevant to Health Maintenance Insurance [facility] MEDICARE ADVANTAGE [employer] MED[employer]ARE [employer] MED[employer]ARE Care Teams Floor Waxer Relationship Specialty Start Date End Date Iftikhar Barry MD PCP - General Family Practice 07/27/22
== END 2025-02-20 14:04 | disposition short-term general hospital (02) ==
PROVIDERS: PCP Family Medicine
DX: I16.0 Hypertensive urgency (principal); Z87.891 Personal history of nicotine dependence; E11.9 Type 2 diabetes mellitus without complications; Z79.84 Long term (current) use of oral hypoglycemic drugs; I10 Essential (primary) hypertension; E78.49 Other hyperlipidemia; M19.90 Unspecified osteoarthritis, unspecified site; H54.62 Unqualified visual loss, left eye, normal vision right eye; K21.9 Gastro-esophageal reflux disease without esophagitis; N40.1 Benign prostatic hyperplasia with lower urinary tract symptoms
CPT/HCPCS: 93005; 99213; G0463

== ENCOUNTER 2025-02-20 14:30 | Emergency (ER) | payer MEDICARE, SELFPAY ==
[2025-02-20] VITALS (17 sets, daily range): BP systolic 140–184; BP diastolic 52–86; PULSE 71–94; RESP 12–20; TEMP 36.8; O2SAT 98–100
--- NOTE | ~2025-02-20 | XR_ITS ---
EXAMINATION: XR chest 1V portable Exam Date/Time: 02/20/2025 15:15 CDT HISTORY: cp Comparison: None. RESULT: Lines, tubes, and devices: None. Lungs and pleura: Patchy subsegmental airspace disease in the left lung base, and to a lesser extent the right lung base. Mild left retrocardiac angle blunting. Left hemidiaphragm elevation. Cardiomediastinal silhouette: Stable. Other: No acute osseous or upper abdominal finding. IMPRESSION: Subsegmental bibasilar atelectasis/consolidation. Possible small left pleural effusion. Reviewed, dictated and finalized at location K. IMPRESSION: Subsegmental bibasilar atelectasis/consolidation. Possible small left pleural e ffusion.
--- NOTE | 2025-02-20 15:10 | ECG_ITS ---
Test Date: 2025-02-20 15:21:42 Measurements Intervals [place] Rate: 79 P: 3 SD: 135 QRS: -9 QRSD: 110 T: 30 QT: 370 QTc: 426 Interpretive Statements SINUS RHYTHM LOW QRS VOLTAGE IN PRECORDIAL LEADS [QRS DEFLECTION < 1.0 mV IN CHEST LEADS] INCOMPLETE RIGHT BUNDLE BRANCH BLOCK [90+ ms QRS DURATION, TERMINAL R IN V1/V2, 40+ ms S IN I/aVL/V4/V5/V6] Compared to ECG 02/20/2025 13:51:32 Low QRS voltage now present Electronically Signed On 02-21-2025 16:01:04 CDT by Deondre Torres
[2025-02-20 15:45] LABS: Basophils Absolute Auto 0.1 K/mm3 (0.0-0.1); Basophils Percent Auto 0.6 % (0.2-1.2); Eosinophils Absolute Auto 0.4 K/mm3 (0-0.3); Eosinophils Percent Auto 3.4 % (0-4.4); Hematocrit 46.4 % (42.0-52.0); Hemoglobin 14.7 g/dL (14.0-18.0); Immature Granulocyte Absolute 0.05 K/mm3 (0.00-0.031); Immature Granulocyte Percent A 0.4 % (0-0.5); Lymphocytes Absolute Auto 1.66 K/mm3 (0.9-3.2); Lymphocytes Percent Auto 13.9 % (18.3-44.2); Mean Corpuscular HGB Conc 31.7 g/dl (32-36); Mean Corpuscular Hemoglobin 28.3 pg (26-34); Mean Corpuscular Volume 89.4 fl (80-100); Mean Platelet Volume 9.8 fl (7.4-10.4); Monocytes Absolute Auto 0.7 K/mm3 (0.1-0.6); Monocytes Percent Auto 6.1 % (2.6-8.5); Neutrophils Percent Auto 75.6 % (45.5-73.1); Platelet Count Result 236 k/mm3 (150-375); Red Blood Count 5.19 M/mm3 (4.6-6.20); Red Cell Distribution Width 13.2 % (11.5-14.5); White Blood Count 11.9 K/mm3 (4.5-10.0)
[2025-02-20 15:51] LABS: Add Urine Microscopic? YES; Appearance Urine Clear (Clear); Bacteria Urine None Seen /hpf; Bilirubin Urine Negative (Negative); Blood Urine Negative (Negative); Color Urine Yellow (Yellow); Glucose Urine UA Negative (Negative); Ketones Urine Negative (Negative); Leukocyte Esterase Ur Trace LEU/UL (Negative); Nitrate Urine Negative (Negative); Non Pathogenic Casts 0-2; Protein Urine Negative (Negative); RBC Urine 0-2 /hpf (0-2); Specific Grav Ur 1.011 (1.001-1.035); Squamous Epithelial Cell Urine None Seen /hpf (Few); Urobilinogen Urine 0.2 mg/dL (<2.0); WBC Urine 0-5 /hpf (0-3); pH Urine 6.5 (5.0-9.0)
[2025-02-20 15:54] LABS: Alanine Aminotransferase 30 U/L (6-50); Albumin Level 4.4 g/dL (3.5-5.1); Alkaline Phosphatase 80 U/L (38-126); Anion Gap 8 mmol/L (4-12); Aspartate Amino Transferase 21 U/L (17-59); Bilirubin,Total 0.4 mg/dL (0.2-1.3); Blood Urea Nitrogen 20 mg/dL (9-20); Calcium 9.5 mg/dL (8.4-10.2); Carbon Dioxide 26 mmol/L (22-30); Chloride 106 mmol/L (98-107); Estimated CRCL calculation 54 ml/min; Estimated Glomerular Filt Rate > 60; Glucose 127 mg/dL (65-110); Potassium 4.5 mmol/L (3.4-5.0); Sodium 140 mmol/L (137-145)
[2025-02-20 15:59] LABS: INR 1.1
[2025-02-20 16:00] LABS: Partial Thromboplastin Time 27.1 Seconds (22.3-36.8)
[2025-02-20 16:06] LABS: NT Pro B Type Natriuretic Pept 148 pg/mL (19.9-100); Troponin I < 0.012 ng/mL (0.000-0.034)
--- NOTE | 2025-02-20 16:42 | ED_ITS ---
HPI - General Adult General Chief complaint: Recheck/Abnormal Lab/Rx Stated complaint: from UC for hypertension Time Seen by Provider: 02/20/25 15:10 History of Present Illness HPI narrative: 80-year-old male presents to the emergency department for evaluation for some elevated blood pressures at approximately 1:00 p.m. when he woke up from a nap. Patient states for about 2 hours he was having pain into bilateral arms. Patient states he does take his blood pressure medications regularly but does not often check his blood pressure at home because he thought his cough is not working. Patient had the arm pain today after waking up and figured out how to use his blood pressure cuff. Patient does have prior history ACS with stents and does follow-up with Cardiology, Dr. Mckenzie. Patient states he is scheduled to have follow-up with Dr. Mckenzie for routine checkup. Related Data Home Medications ?Medication ?Instructions ?Recorded ?Confirmed ?Last Taken ?Type ibuprofen 200 mg tablet 400 mg PO DAILY 11/25/19 12/22/24 Unknown History latanoprost 0.005 % eye drops 1 drop ophthalmic (eye) QPM 11/25/19 12/22/24 Unknown History timolol maleate 0.5 % eye drops 1 drop ophthalmic (eye) Q12H 11/25/19 12/22/24 Unknown History vitamin B complex (B 1 tablet PO DAILY 11/25/20 12/22/24 Unknown History Complex-Vitamin B12 tablet) dorzolamide 22.3 mg-timolol 6.8 1 drp EACH EYE BID 06/05/21 12/22/24 Unknown History mg/mL eye drops brimonidine 0.2 % eye drops 1 drp EACH EYE Q8H 12/23/23 12/22/24 Unknown History netarsudil 0.02 % eye drops 1 drp EACH EYE BID 12/23/23 12/22/24 Unknown History (Rhopressa) sodium chloride 5 % eye drops 1 drp EACH EYE QID PRN 12/23/23 12/22/24 Unknown History (Salome 128) atorvastatin 40 mg tablet 40 mg PO QHS 12/22/24 12/22/24 Unknown History pantoprazole 40 mg tablet,delayed 40 mg PO QAM 12/22/24 12/22/24 Unknown History release Allergies Allergy/AdvReac Type Severity Reaction Status Date / Time Horse/Equine Containing Allergy Severe SWELLING Verified 02/20/25 14:36 Products codeine Allergy Unknown Unknown Verified 02/20/25 14:36 Penicillins Allergy Unknown Unknown Verified 02/20/25 14:36 warfarin Allergy Unknown Unknown Verified 02/20/25 14:36 Tetanus Vaccines and Toxoid AdvReac Mild Rash Verified 02/20/25 14:36 Review of Systems 2 Review of Systems: All systems reviewed & are unremarkable except as noted in HPI and below PMFSH Past Medical History Medical History Numbness and tingling in both hands Osteoarthritis Type 2 diabetes mellitus without complications Environmental allergies Colon cancer screening declined Blindness of left eye Benign prostatic hyperplasia with nocturia Essential (primary) hypertension (~1989) Chronic GERD (~2018) Other hyperlipidemia (~2009) Unspecified glaucoma Surgical History Surgical History History of tonsillectomy and adenoidectomy History of cataract surgery (~1977) History of medial meniscus repair of left knee (~06/2018) Status post glaucoma surgery (~04/2023) Family History Family History Mother Hypertension Sibling Hypertension Stomach cancer brother passed 1m 2wks ago. Social History Social History Social History: caffeine-diet soda Smoking status: Former smoker Second hand tobacco smoke exposure: No Smoking end date: 10/21/89 Alcohol intake: former Substance use: never Substance use type: does not use Lack of Transportation: No Lack of Food: Never True Current Housing: I Have Housing Concerned About Future Housing: No Difficulty Paying Gas/Electric Bills: No Difficulty Paying for Meds: No Currently Unemployed: No Education: High School Diploma/GED Difficulty w/ Childcare or Family Care: No Living arrangements: alone Occupation/Education: retired Gender identity (if verbalized by the patient): Male Agree to blood products: Yes Exam 2 Narrative: APPEARANCE: Well appearing, no pain, no distress, well-nourished. HEAD: normocephalic, atraumatic. EYES: PERRLA/EOMI, conjunctivae clear. NOSE: Normal no drainage EARS:TMS clear with good light reflex. THROAT: Pharynx clear, no exudate. NECK: Supple. No adenopathy, no masses. RESPIRATORY: Airway patent, respirations nonlabored. Clear to auscultation bilaterally, no rales, rhonchi, wheezing. CARDIOVASCULAR: Regular rate and rhythm without murmurs rubs or gallops. ABDOMINAL: Soft, nontender, nondistended, normal bowel sounds MUSCULOSKELETAL: Moves all extremities. Strength/ROM intact, No edema, No calf tenderness. NEURO: Alert. Cranial nerves II through XII intact. Good gait. Good coordination SKIN: Warm, dry. Normal Color Course Vital Signs Vital signs: Vital Signs Temperature 98.2 F 02/20/25 14:34 Pulse Rate 94 02/20/25 14:34 Respiratory Rate 16 02/20/25 14:34 Blood Pressure 184/69 H 02/20/25 14:34 Pulse Oximetry 98 02/20/25 14:34 Temperature 98.2 F 02/20/25 14:34 Pulse Rate 75 02/20/25 18:02 Respiratory Rate 17 02/20/25 18:02 Blood Pressure 153/70 H 02/20/25 18:01 Pulse Oximetry 100 02/20/25 18:02 Medical Decision Making MDM Narrative Medical decision making narrative: 80-year-old male presenting to the emergency department for evaluation for bilateral upper arm pain that has now since resolved. Patient states was not associated with exertion but associated with some elevated blood pressures. Patient is afebrile but does have a leukocytosis 11.9 a stable hemoglobin 14.7. INR is 1.1. Patient has had negative serial troponins and no changes on his EKG. Patient's proBNP is 148. UA was negative for infection. Patient was asymptomatic the entire time of the emergency department. Patient states earlier he was having arm pain but denies any chest pain or shortness of breath. Patient and family were encouraged to have close follow-up with primary care physician for additional outpatient cardiac testing Differential Diagnosis Differential Diagnosis: ACS, pneumonia, hypertension Vital Signs Vital Signs: Vital Signs Temperature 98.2 F 02/20/25 14:34 Pulse Rate 94 02/20/25 14:34 Respiratory Rate 16 02/20/25 14:34 Blood Pressure 184/69 H 02/20/25 14:34 Pulse Oximetry 98 02/20/25 14:34 Temperature 98.2 F 02/20/25 14:34 Pulse Rate 75 02/20/25 18:02 Respiratory Rate 17 02/20/25 18:02 Blood Pressure 153/70 H 02/20/25 18:01 Pulse Oximetry 100 02/20/25 18:02 Lab Data Lab results reviewed: Yes I reviewed the patient's lab results. 02/20/25 15:39 02/20/25 15:39 Labs: Lab Results 02/20/25 02/20/25 Range/Units 15:39 18:07 WBC 11.9 H (4.5-10.0) K/mm3 RBC 5.19 (4.6-6.20) M/mm3 Hgb 14.7 (14.0-18.0) g/dL Hct 46.4 (42.0-52.0) % MCV 89.4 (80-100) fl MCH 28.3 (26-34) pg MCHC 31.7 L (32-36) g/dl RDW 13.2 (11.5-14.5) % Plt Count 236 (150-375) k/mm3 MPV 9.8 (7.4-10.4) fl Immature Gran % (Auto) 0.4 (0-0.5) % Neut % (Auto) 75.6 H (45.5-73.1) % Lymph % (Auto) 13.9 L (18.3-44.2) % Barry % (Auto) 6.1 (2.6-8.5) % Eos % (Auto) 3.4 (0-4.4) % Baso % (Auto) 0.6 (0.2-1.2) % Lymph # (Auto) 1.66 (0.9-3.2) K/mm3 Barry # (Auto) 0.7 H (0.1-0.6) K/mm3 Eos # (Auto) 0.4 H (0-0.3) K/mm3 Baso # (Auto) 0.1 (0.0-0.1) K/mm3 Abs Immat Gran (auto) 0.05 H (0.00-0.031) K/mm3 Absolute Neuts (auto) 9.0 H (1.3-6.7) K/mm3 Absolute Nucleated RBC 0.000 (0.0-0.012) K/mm3 Nucleated RBC % 0.0 (0.0-0.2) % PT 14.0 (11.1-14.7) Seconds INR 1.1 APTT 27.1 (22.3-36.8) Seconds Sodium 140 (137-145) mmol/L Potassium 4.5 (3.4-5.0) mmol/L Chloride 106 (98-107) mmol/L Carbon Dioxide 26 (22-30) mmol/L Anion Gap 8 (4-12) mmol/L BUN 20 (9-20) mg/dL Creatinine 1.10 (0.7-1.3) mg/dL Estim Creat Clear Calc 54 ml/min Estimated GFR > 60 (59 - ) Glucose 127 H (65-110) mg/dL Calcium 9.5 (8.4-10.2) mg/dL Total Bilirubin 0.4 (0.2-1.3) mg/dL AST 21 (17-59) U/L ALT 30 (6-50) U/L Alkaline Phosphatase 80 (38-126) U/L Troponin I < 0.012 < 0.012 (0.000-0.034) ng/mL NT-Pro-B Natriuret Pep 148 H (19.9-100) pg/mL Total Protein 7.0 (6.3-8.2) g/dL Albumin 4.4 (3.5-5.1) g/dL Urine Color Yellow (Yellow) Urine Appearance Clear (Clear) Urine pH 6.5 (5.0-9.0) Ur Specific [place] 1.011 (1.001-1.035) Urine Protein Negative (Negative) mg/dL Urine Glucose (UA) Negative (Negative) mg/dL Urine Ketones Negative (Negative) mg/dL Ur Blood (Man) Negative (Negative) Urine Nitrate Negative (Negative) Urine Bilirubin Negative (Negative) Urine Urobilinogen 0.2 (<2.0) mg/dL Leukocyte Esterase Rfl Trace H (Negative) EUFEMIA/UL Urine RBC 0-2 (0-2) /hpf Urine WBC 0-5 (0-3) /hpf Ur Squamous Epith Cells None seen (Few) /hpf Urine Bacteria None seen /hpf Urine Casts 0-2 Imaging Data Radiologist's impression: Impressions Chest X-Ray 02/20/25 15:39 IMPRESSION: Subsegmental bibasilar atelectasis/consolidation. Possible small left pleural effusion. Discharge Plan Discharge Clinical Impression: Hypertension Patient Disposition: Home Condition: Stable Instructions: Antibiotic Form, Hypertension (ED) Additional Instructions: Have close follow-up with your primary care physician. If you have any worsening symptoms then please call or return to the emergency department. Patient Language: Bolivian Prescriptions: No Action vitamin B complex [B Complex-Vitamin B12] Tablet 1 tablet PO DAILY dorzolamide-timolol 22.3-6.8 mg/mL drops 1 drp EACH EYE BID Rhopressa 0.02 % drops 1 drp EACH EYE BID sodium chloride [Salome 128] 5 % drops 1 drp EACH EYE QID PRN brimonidine 0.2 % drops 1 drp EACH EYE Q8H ibuprofen 200 mg tablet 400 mg PO DAILY timolol maleate 0.5 % drops 1 drop EACH EYE Q12H latanoprost 0.005 % drops 1 drop EACH EYE QPM (DME) Blood Glucose Test Strip See Rx Instructions .ROUTE .MEDSUPPLY Qty: 100 5RF Rx Instructions: check blood sugars t.i.d. a.c. As directed (DME) lancets 30 gauge misc See Rx Instructions .Route Qty: 100 1RF Rx Instructions: check blood sugars qdaily As directed atorvastatin 40 mg tablet 40 mg PO QHS pantoprazole 40 mg tablet,delayed release (DR/EC) 40 mg PO QAM (DME) lancets 30 gauge misc See Rx Instructions .Route Qty: 100 3RF Rx Instructions: Use BID fosinopril 40 mg tablet 40 mg PO DAILY Qty: 90 1RF amlodipine 10 mg tablet 10 mg PO DAILY Qty: 90 1RF metformin 500 mg tablet 500 mg PO BID Qty: 180 1RF hydroxyzine HCl 25 mg tablet 25 mg PO BID Qty: 60 5RF glipizide 5 mg tablet 5 mg PO DAILY Qty: 90 1RF Follow-up/Referrals: Therese Barry MD [Primary Care Provider] -
[2025-02-20] MEDS: hydrALAZINE HCL 20 MG/ML VIAL 10 MG IV PUSH (17:20)
--- NOTE | 2025-02-20 18:01 | ECG_ITS ---
Test Date: 2025-02-20 18:06:49 Measurements Intervals Bernard Rate: 74 P: 55 AK: 180 QRS: -3 QRSD: 106 T: 17 QT: 394 QTc: 438 Interpretive Statements SINUS RHYTHM LOW QRS VOLTAGE IN PRECORDIAL LEADS [QRS DEFLECTION < 1.0 mV IN CHEST LEADS] INCOMPLETE RIGHT BUNDLE BRANCH BLOCK [90+ ms QRS DURATION, TERMINAL R IN V1/V2, 40+ ms S IN I/aVL/V4/V5/V6] Compared to ECG 02/20/2025 15:21:42 No significant changes Electronically Signed On 02-21-2025 16:03:21 CDT by Deondre Torres
--- NOTE | 2025-02-20 18:10 | PC.NURSE ---
repeat troponin sent to lab at this time
[2025-02-20 18:35] LABS: Troponin I < 0.012 ng/mL (0.000-0.034)
== END 2025-02-20 19:42 | disposition home or self-care (01) ==
PROVIDERS: Emergency Provider Emergency Medicine; PCP Family Medicine
DX: I10 Essential (primary) hypertension (principal); E11.9 Type 2 diabetes mellitus without complications; E78.49 Other hyperlipidemia; H40.9 Unspecified glaucoma; Z87.891 Personal history of nicotine dependence
CPT/HCPCS: 36415; 71045; 80053; 81001; 83880; 84484; 85025; 85610; 85730; 93005; 96374; 99284; J0360

== ENCOUNTER 2025-06-02 12:33 | Outpatient (CLI) | payer MEDICARE, SELFPAY ==
--- OUTSIDE RECORDS SUMMARY | 2025-06-02 12:36 | XMS_ITS | Clinical Summary ---
Author [place] [facility] [place] [address] [facility] [address] [facility] [address] [place] [address] Care Team Providers Care Director Of Program Management Name Role Phone Iftikhar Barry MD Primary [...] mellitus type II, non insulin dependent 08/10/2022 Encounters Date Type Department Care Team Description 03/22/2025 1:00 PM CDT Office Visit [facility] Cardiology [address] [place] [address] Ayanna Garcia NP Primary hypertension (Primary Dx); History of heart attack from Last 3 Months Social History Tobacco Use Types Packs/Day Years Used Date Smoking Tobacco: Former Cigarettes Smokeless Tobacco: Never Tobacco Cessation:Counseling Given: Not Answered Sex and Gender Information Value Date Recorded Sex Assigned at Not on file Legal 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 Gender Identity Not on file Sexual Orientation Not on file Obstetrics History Last Filed Vital Signs Vital Sign Reading Time Taken Comments Blood Pressure 142/60 03/22/2025 1:32 PM CDT Pulse 72 03/22/2025 1:04 PM CDT Temperature - - Respiratory Rate - - Oxygen Saturation 98% 03/22/2025 1:04 PM CDT Inhaled Oxygen Concentration - - Weight 100.2 kg (221 lb) 03/22/2025 1:04 PM CDT Height 167.6 cm (5' 6) 03/22/2025 1:04 PM CDT Body Mass Index 35.67 03/22/2025 1:04 PM CDT Plan of Treatment Health Maintenance Due [...] 01/25/2021, Additional history exists Influenza Vaccine (#1) 2025 , 07/07/2020, 07/17/2019, Additional history exists Procedures [...] Capillary blood 08/10/2022 9 :14 AM CDT [facility] Edwar Mckenzie MD POINT OF CARE TEST CAITLIN HANDY Final Result from Last 3 Months or Most Recently Relevant to Health Maintenance Insurance [facility] MEDICARE [facility] MED[facility] Address: [address] [address] [place] [address] AET MEDICARE [facility] [address] MEDICARE Address: [address] [place] [address] AET MEDICARE Care Teams Director Of Program Management Relationship Specialty Start Date End Date Iftikhar Barry MD PCP - General Family Practice 07/27/22
--- OUTSIDE RECORDS SUMMARY | 2025-06-02 12:36 | XMS_ITS | Clinical Summary ---
Author Organization [facility] Address [address] [facility] [place] [address] Care Team Providers Care Tape Stringer Name Role Phone Santiago Restrepo MD Primary Care Provider [phone] [facility] Affiliates and Associated Physician Practices is amultiple site organization consisting of ambulatory clinics and hospital sitesin [place], [place], [place] and [place]. This disclosure is being madepursuant to the Care Everywhere program and may not contain all information available regarding this patient. Last updated 18.[facility] Allergies Active Allergy Reactions Criticality Noted Date [...] Health Maintenance Due Date Last Done Comments DIABETES-SERUM CREATININE 01/31/1963 DTAP/TDAP/TD VACCINES (1 - [...] MEDICARE AWV CALENDAR YEAR 2024 INFLUENZA VACCINE (#1) 2025 DIABETES RETINOPATHY SCREENING 11/13/2025 11/13/2023 HEPATITIS [...] topic Insurance [employer] MEDICARE ADV Care Teams Tape Stringer Relationship Specialty Start Date End Date Santiago Restrepo MD [address] [place] [address] PCP - General 06/24/19
--- OUTSIDE RECORDS SUMMARY | 2025-06-02 12:36 | XMS_ITS | Encounter Summary ---
Author Organization [facility] Healthcare Address [facility] [place] [address] Care Team Providers Care Dog Groomer Name Role Phone Iftikhar Barry MD Primary Care Provider Encounter Details Date Type Department Care Team (Late st Contact Info) Description 02/20/2025 [place] [facility] [place] [address] [place] [id number] Scanning, Provider Social History Tobacco Use Types Packs/Day Years Used Date Smoking Tobacco: Former Cigarettes Smokeless Tobacco: Never Sex and Gender Information Value Date Recorded Sex Assigned at Not on file 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 Gender Identity Not on file Sexual Orientation Not on file documented as of this encounter Plan of Treatment Not on file documented as of this encounter Procedures Procedure Name Priority Date/Time Associated Diagnosis Comments SCAN - RADIOLOGY/IMAGING 02/20/2025 documented in this encounter Results * SCAN - RADIOLOGY/IMAGING (02/20/2025) Anatomical Region Laterality Modality Other us Provider Scanning Final Result documented in this encounter Visit Diagnoses Not on filedocumented in this encounter Care Teams Dog Groomer Relationship Specialty Start Date End Date Iftikhar Barry MD PCP - General Family Practice 07/27/22 documented as of this encounter
[2025-06-02 13:30] LABS: Alanine Aminotransferase 29 U/L (6-50); Albumin Level 4.3 g/dL (3.5-5.1); Alkaline Phosphatase 78 U/L (38-126); Anion Gap 8 mmol/L (4-12); Aspartate Amino Transferase 46 U/L (17-59); Bilirubin,Total 0.5 mg/dL (0.2-1.3); Blood Urea Nitrogen 18 mg/dL (9-20); Calcium 10.0 mg/dL (8.4-10.2); Carbon Dioxide 25 mmol/L (22-30); Chloride 107 mmol/L (98-107); Estimated Glomerular Filt Rate > 60; Glucose 103 mg/dL (65-110); Potassium 4.8 mmol/L (3.4-5.0); Sodium 140 mmol/L (137-145); Total Protein 7.6 g/dL (6.3-8.2)
[2025-06-02 17:34] LABS: Hemoglobin A1C 6.4 % (<5.7)
== END 2025-06-02 12:34 | disposition home or self-care (01) ==
LOC: ANHGOSHLAB 12:33
PROVIDERS: PCP Family Medicine; Visit Provider Family Medicine
DX: I10 Essential (primary) hypertension (principal); E11.9 Type 2 diabetes mellitus without complications
CPT/HCPCS: 36415; 80053; 83036